=== PATIENT | male | born 1985 | race African-American/Black ===

== ENCOUNTER 2021-05-22 21:03 | Emergency (ER) | payer OTHER ==
[~2021-05-22] VITALS: Ht 182.9 cm; Wt 90.9 kg
[2021-05-22] MEDS ORDERED: LIDOCAINE 1% MDV 20ML VIAL INFIL ONE (22:25)
[2021-05-22] MEDS ORDERED: BACITRACIN OINTMENT 30GM TUBE TOP ONE (23:15)
[2021-05-23] MEDS ORDERED: NORCO, ANEXSIA 5/325MG TABLET (HYDROcodone/ACETAMINOPHEN) PO ONE (00:10)
[2021-05-23] MEDS ORDERED: ceFAZolin 1GM VIAL (J0690 PER 500MG) IM ONE (00:10)
[2021-05-23 00:32] VITALS: BP 130/67
== END 2021-05-23 00:33 | disposition home or self-care (01) ==
LOC: M ED 21:03
DX: Z04.71 Encounter for examination and observation following alleged adult physical abuse (principal); S61.011A Laceration without foreign body of right thumb without damage to nail, initial encounter; X58.XXXA Exposure to other specified factors, initial encounter; Y92.009 Unspecified place in unspecified non-institutional (private) residence as the place of occurrence of the external cause; Y93.9 Activity, unspecified; Y99.9 Unspecified external cause status
CPT/HCPCS: 12001; 96372; 99284; J0690

== ENCOUNTER 2023-01-13 10:46 | Emergency (ER) | payer OTHER ==
[~2023-01-13] VITALS: Ht 182.9 cm; Wt 92.5 kg
[2023-01-13 13:41] LABS: GC DNA AMPLIFICATION NEGATIVE (NEGATIVE)
[2023-01-13 14:11] VITALS: BP 140/94
== END 2023-01-13 14:14 | disposition home or self-care (01) ==
LOC: M ED 10:46
DX: Z20.2 Contact with and (suspected) exposure to infections with a predominantly sexual mode of transmission (principal)